=== PATIENT | male | born 2000 | race Caucasian/White ===

== ENCOUNTER 2019-11-17 16:06 | Emergency (ER) | payer OTHER ==
[~2019-11-17] VITALS: Ht 160 cm; Wt 56.7 kg
[2019-11-17 16:14] VITALS: Ht 160 cm; Wt 56.7 kg
[2019-11-17 18:48] VITALS: BP 117/77
== END 2019-11-17 18:48 | disposition home or self-care (01) ==
LOC: ED 16:06
DX: N50.812 Left testicular pain (principal)